=== PATIENT | female | born 1990 | race African-American/Black ===

== ENCOUNTER 2017-09-20 09:08 | Emergency (ER) | payer MEDICAID ==
[~2017-09-20] VITALS: Ht 165.1 cm; Wt 46.3 kg
[2017-09-20 09:34] VITALS: BP 108/67
== END 2017-09-20 10:07 | disposition left against medical advice (07) ==
LOC: ER 09:08
DX: Z53.21 Procedure and treatment not carried out due to patient leaving prior to being seen by health care provider (principal)
CPT/HCPCS: 81025